=== PATIENT | female | born 1985 | race Caucasian/White ===

== ENCOUNTER → 2017-02-01 | Outpatient (CLI) | payer BC ==
[~2017-02-01] MED LIST: CALCIUM-MAGNES1 EAC4 PO; COLACE100 MG PO; FEOSOL325 MG PO; FLUORIDE1 MG PO; LEVOTHROID (SY25 MCG PO; PERCOCET 5-3251 EACH PO; PRENATAL 1+1)(P1 TAB PO; SURFAK240 MG PO; TUMS200 MG PO; VITAMIN D-32000 UNI1 PO
== END | disposition disaster alternative care site (69) ==
LOC: GLAB 10:55
DX: E03.9 Hypothyroidism, unspecified (principal)